=== PATIENT | male | born 1970 | race Caucasian/White ===

== ENCOUNTER → 2017-10-29 | Outpatient (CLI) | payer BC | LOC: FIMAGING 10:11 | PROVIDERS: ATTEND Anesthesiology | DX: H53.9 Unspecified visual disturbance (principal); F80.2 Mixed receptive-expressive language disorder; F17.200 Nicotine dependence, unspecified, uncomplicated ==

== ENCOUNTER 2018-11-28 18:21 | Emergency (ER) | payer BC ==
[2018-11-28] MEDS ORDERED: fentaNYL 100 MCG/2 ML INJ NASAL ONE (18:59)
--- NOTE | 2018-11-28 19:01 | EDPHY ---
H & P Stated Complaint: tumbled ski landed on rock 11/24, R should?upper bk pain SOB Time Seen by Provider: 11/28/18 18:50 HPI/ROS: CHIEF COMPLAINT: Chest pain HISTORY OF PRESENT ILLNESS: The patient is a 48-year-old man who comes to the emergency department complaining of right-sided posterior chest pain. He fell skiing 3 days ago and landed on a rock. He has bruising to his right back just lateral to the shoulder blade. He states that he had been doing well until today when he was cleaning the garage and he lifting things. Few hours later he developed increasing pain and shortness of breath. No history of cardiac or pulmonary disease. No fever cough. No history of PE. Severity: Severe Modifying factors: Is worsening REVIEW OF SYSTEMS: Constitutional: denies: chills, fever, recent illness, recent injury EENTM: denies: blurred vision, double vision, nose congestion Respiratory: denies: cough, shortness of breath Cardiac: denies: chest pain, irregular heart rate, lightheadedness, palpitations Gastrointestinal/Abdominal: denies: abdominal pain, diarrhea, nausea, vomiting, blood streaked stools Genitourinary: denies: dysuria, frequency, hematuria, pain Musculoskeletal: See HPI Skin: denies: lesions, rash, jaundice, bruising Neurological: denies: headache, numbness, paresthesia, tingling, dizziness, weakness Hematologic/Lymphatic: denies: blood clots, easy bleeding, easy bruising Immunologic/allergic: denies: HIV/AIDS, transplant 10 systems reviewed and negative except as noted EXAM: GENERAL: Moderate distress, well-nourished HEAD: Atraumatic, normocephalic. EYES: Pupils equal round and reactive to light, extraocular movements intact, sclera anicteric, conjunctiva are normal. ENT: TMs normal, nares patent, oropharynx clear without exudates. Moist mucous membranes. NECK: Normal range of motion, supple without lymphadenopathy or JVD. LUNGS: Bruising intending to right posterior ribs. No crepitus. Pain with deep inspiration. Breath sounds clear to auscultation bilaterally and equal. No wheezes rales or rhonchi. HEART: Regular rate and rhythm without murmurs, rubs or gallops. ABDOMEN: Soft, nontender, normoactive bowel sounds. No guarding, no rebound. No masses appreciated. BACK: No CVA tenderness, no spinal tenderness, step-offs or deformities EXTREMITIES: Normal range of motion, no pitting or edema. No clubbing or cyanosis. NEUROLOGICAL: Cranial nerves II through XII grossly intact. Normal speech, normal gait. 5/5 strength, normal movement in all extremities, normal sensation , normal reflexes PSYCH: Normal mood, normal affect. SKIN: Bruising as above appears to be several days old. Warm, dry, normal turgor, no visible rashes or lesions. Source: Patient Exam Limitations: No limitations - Medical/Surgical History Hx Asthma: No Hx Chronic Respiratory Disease: No Hx Diabetes: No Hx Cardiac Disease: No Hx Renal Disease: No Hx Cirrhosis: No Hx Alcoholism: No Hx HIV/AIDS: No Hx Splenectomy or Spleen Trauma: No Other PMH: hyperlipid - Family History Significant Family History: No pertinent family hx - Social History Smoking Status: Current some day smoker (States he quit smoking 3 months ago.) Alcohol Use: None Constitutional: Initial Vital Signs Temperature (C) 36.4 C 11/28/18 18:46 Heart Rate 74 11/28/18 18:46 Respiratory Rate 18 11/28/18 18:46 Blood Pressure 111/82 H 11/28/18 18:46 O2 Sat (%) 95 11/28/18 18:46 O2 Delivery Mode Room Air Allergies/Adverse Reactions: No Known Allergies Allergy (Unverified 11/28/18 18:44) Home Medications: Medication Instructions Recorded Lipitor 11/28/18 Medical Decision Making - Diagnostics EKG Interpretation: An EKG obtained and was read and documented in trace view. Please see trace view for full reading and report. No acute ischemic changes Imaging: Discussed imaging studies w/ insulation nozzleman Radiologist ED Course/Re-evaluation: Patient's x-ray is unremarkable. He is still having significant pain and difficulty with deep inspiration. Will obtain CT for further workup. Considering his recent injury and symptoms I do not think D-dimer is reliable. CT scan is very reassuring. Patient is feeling better. Will discharge home with close follow-up. Is requesting take-home Vicodin. Declines further workup or testing. Discussed indications for returning. Differential Diagnosis: Partial list of the Differential diagnosis considered include but were not limited to; rib fracture, pneumothorax, pulmonary contusion and although unlikely based on the history and physical exam, I also considered PE, acute coronary disease, infection. I discussed these differential diagnoses and the plan with the patient as well as the usual and expected course. The patient understands that the diagnosis is provisional and that in medicine we are not always correct and that further workup is often warranted. Usual and customary warnings were given. All of the patient's questions were answered. The patient was instructed to return to the emergency department should the symptoms at all worsen or return, otherwise to followup with the physician as we discussed. - Data Points Medications Given: Discontinued Medications Fentanyl (Sublimaze) 200 mcg NASAL EDNOW ONE Stop: 11/28/18 19:00 Last Admin: 11/28/18 19:22 Dose: 200 mcg Oxycodone/Acetaminophen (Percocet 5/325mg Prepack#4) 1 btl TAKEHOME EDNOW ONE Stop: 11/28/18 20:35 Last Admin: 11/28/18 20:48 Dose: 1 btl Point of Care Test Results: Chemistry 11/28/18 19:50 POC Sodium 143 mEq/L mEq/L (135-145) POC Potassium 3.9 mEq/L mEq/L (3.3-5.0) POC Chloride 107 mEq/L mEq/L (97-110) POC Total CO2 22 mEq/L mEq/L (22-31) POC BUN 16 mg/dL mg/dL (7-23) POC Creatinine 0.9 mg/dL mg/dL (0.7-1.3) POC Glucose 96 mg/dL mg/dL (70-100) ISTAT H&H 11/28/18 19:50 POC Hgb 14.3 gm/dL gm/dL (13.7-17.5) POC Hct 42 % % (40-51) Departure - Departure Disposition: Home, Routine, Self-Care Clinical Impression: Rib pain on right side Condition: Fair Instructions: Oxycodone/Acetaminophen (By mouth), Thoracic Pain (ED) Referrals: LAXMI JORGE [Primary Care Provider] - 2-3 days, if not improved
[2018-11-28] MEDS ORDERED: IOPAMIDOL (ISOVUE 370) 100 ML BTL IV ONE (19:44)
[2018-11-28 20:06] LABS: INR 0.94 (0.83-1.16); PROTIME(PATIENT) 12.2 SEC (12.0-15.0)
--- NOTE | 2018-11-28 20:26 | CPEKG ---
Test Reason : OPEN Blood Pressure : / mmHG Vent. Rate : 062 BPM Atrial Rate : 063 BPM P-R Int : 149 ms QRS Dur : 091 ms QT Int : 416 ms P-R-T Axes : 078 054 028 degrees QTc Int : 423 ms Sinus rhythm Confirmed by Karin Castellanos ([id number]) on 11/28/2018 8:25:33 PM Referred By: KARIN CASTELLANOS Confirmed By:Karin Castellanos
[2018-11-28] MEDS ORDERED: OXYCODONE/APAP 5/325MG PREPACK#4 BTL TAKEHOME ONE (20:34)
[2018-11-28 20:48] VITALS: BP 117/66
== END 2018-11-28 20:56 | disposition home or self-care (01) ==
DX: R07.81 Pleurodynia (principal); F17.200 Nicotine dependence, unspecified, uncomplicated
CPT/HCPCS: 82435-PO; 82565-PO; 82947-PO; 84132-PO; 84295-PO; 84520-PO; 85014-ER; J3010; Q9967

== ENCOUNTER → 2019-01-21 | Outpatient (CLI) | payer BC | LOC: BMCIMAGING 07:15 | PROVIDERS: ATTEND Family Medicine | DX: N50.3 Cyst of epididymis (principal) ==